=== PATIENT | male | born 1980 | race Two or more races ===

== ENCOUNTER 2024-01-29 21:12 | Emergency (ER) | payer OTHER ==
[~2024-01-29] VITALS: Ht 172.7 cm; Wt 65.8 kg
[2024-01-29] MEDS ORDERED: LORAZEPAM 2 MG/1 ML VIAL ONE (21:45)
[2024-01-29] MEDS: IV NORMAL SALINE 1000 ML BAG IV ONE (22:05)
[2024-01-29] MEDS: LORAZEPAM 2 MG/1 ML VIAL IV ONE (22:05)
[2024-01-29 22:21] LABS: *BILIRUBIN,URIN NEGATIVE (NEGATIVE); *CLARITY,URINE CLEAR (CLEAR); *COLOR,URINE YELLOW (YELLOW); *KETONES,URINE 1+ (NEGATIVE); *PROTEIN,URINE NEGATIVE (NEGATIVE); *UROBILINOGEN,URINE 0.2 E.U./dl (NORMAL); LEUKOCYTE ESTERASE ,URINE NEGATIVE (NEGATIVE); NITRITE, URINE NEGATIVE (NEGATIVE)
[2024-01-29 22:23] LABS: *BLOOD, URINE NEGATIVE (NEGATIVE); UGLUCOSE 2+ (NEGATIVE)
[2024-01-29 22:24] LABS: RBC,URINE 0-3 /HPF (0-3); WBC,URINE 0-3 /HPF (0-3)
[2024-01-29 22:28] LABS: BASOPHILS % (AUTO) 0.4 % (0.0-2.0); DIFFERENTIAL COMMENT 0; EOSINOPHILS % (AUTO) 0.1 % (0.0-7.0); ETHANOL 389 MG/DL (0-10); HEMATOCRIT 33.7 % (36.7-47.1); HEMOGLOBIN 11.4 g/dL (12.5-16.3); LYMPHOCYTES # (AUTO) 1.4 K/uL (0.8-4.8); LYMPHOCYTES % (AUTO) 19.1 % (20.5-51.5); MEAN CORPUSCULAR HEMOGLOBIN 30.2 uug (23.8-33.4); MEAN CORPUSCULAR HGB CONC 34 g/dL (32.5-36.3); MEAN CORPUSCULAR VOLUME 89.2 fL (73.0-96.2); MONOCYTES # (AUTO) 0.5 K/uL (0.1-1.30); MONOCYTES % (AUTO) 6.7 % (0.0-11.0); NEUTROPHILS # (AUTO) 5.3 K/uL (1.8-8.9); NEUTROPHILS % (AUTO) 73.7 % (38.5-71.5); PLATELET COUNT (AUTO) 203 K/uL (152-348); RED BLOOD CELL COUNT(AUTO) 3.78 MIL/uL (4.06-5.63); RED CELL DISTRIBUTION WIDTH 18.6 % (12.1-16.2); WHITE BLOOD COUNT (AUTO) 7.2 K/uL (3.6-10.2)
[2024-01-29 22:28] LABS: *AMPHETAMINE, URINE NEGATIVE (NEGATIVE); *BARBITURATE, URINE NEGATIVE (NEGATIVE); *BENZODIAZEPINE, URINE NEGATIVE (NEGATIVE); *CANNABINOID, URINE NEGATIVE (NEGATIVE); *COCCAINE, URINE NEGATIVE (NEGATIVE); *OPIATE, URINE NEGATIVE (NEGATIVE); *PHENCYCLIDINE SCREEN,URINE NEGATIVE (NEGATIVE)
[2024-01-29 22:29] LABS: CALCIUM 8.3 mg/dL (8.5-10.1); CARBON DIOXIDE 23 mmol/L (21-32); CHLORIDE 95 mmol/L (98-107); CREATININE 0.7 mg/dL (0.6-1.3); GLUCOSE 201 mg/dL (74-106); POTASSIUM 3.4 mmol/L (3.5-5.1); SODIUM SERUM 132 mmol/L (136-145); UREA NITROGEN, BLOOD 8 mg/dL (7-18)
[2024-01-29 22:42] LABS: THYROID STIMULATING HORMONE 0.752 mIU/mL (0.358-3.740)
[2024-01-29 22:44] LABS: ALANINE AMINOTRANSFERASE 21 U/L (16-63); ALBUMIN 2.6 g/dL (3.4-5.0); ALKALINE PHOSPHATASE 229 U/L (50-136); ASPARTATE AMINOTRANSFERASE 30 U/L (15-37); BILIRUBIN,DIRECT 0.2 mg/dL (0.0-0.2); BILIRUBIN,TOTAL 0.6 mg/dL (0.2-1.0); TOTAL PROTEIN, SERUM 7.1 g/dL (6.4-8.2)
[2024-01-29 22:45] LABS: ACETAMINOPHEN < 10.0 ug/mL (10-30)
[2024-01-29 22:50] LABS: FENTANYL, URINE NEGATIVE (NEGATIVE)
[2024-01-29 22:58] LABS: LACTIC ACID 3.1 mmol/L (0.4-2.0)
[2024-01-29 23:47] LABS: MAGNESIUM 1.8 mg/dL (1.8-2.4)
[2024-01-29 23:58] LABS: *OCCULT BLOOD STOOL POSITIVE (NEGATIVE)
[2024-01-30] MEDS: IV NORMAL SALINE 1000 ML BAG IV ONE (00:15)
[2024-01-30] MEDS ORDERED: PANTOPRAZOLE SODIUM 40 MG VIAL ONE (00:15)
[2024-01-30] MEDS ORDERED: METF-442 PO (00:27)
[2024-01-30] MEDS: PANTOPRAZOLE SODIUM IV 80 MG in IV DEXTROSE 5% 100 ML IV ONE (00:30)
[2024-01-30] MEDS ORDERED: REMEDY ESSENTIAL ZINC PASTE 113 GM TP PRN (00:45)
[2024-01-30] MEDS: THIAMINE HCL 200 MG/2 ML VIAL IV ONE (01:15)
[2024-01-30] MEDS ORDERED: THIAMINE HCL 200 MG/2 ML VIAL ONE (01:23)
[2024-01-30] MEDS ORDERED: LORAZEPAM 2 MG/1 ML VIAL ONE ×2 (01:24→07:49)
[2024-01-30] MEDS: LORAZEPAM 2 MG/1 ML VIAL IV ONE (01:30)
[2024-01-30] MEDS ORDERED: ONDANSETRON 4 MG/2 ML VIAL ONE ×2 (05:18→07:49)
[2024-01-30] MEDS: ONDANSETRON 4 MG/2 ML VIAL IV ONE (05:23)
[2024-01-30 05:52] LABS: BASOPHILS % (AUTO) 0.7 % (0.0-2.0); EOSINOPHILS % (AUTO) 0.3 % (0.0-7.0); HEMATOCRIT 32.1 % (36.7-47.1); HEMOGLOBIN 10.7 g/dL (12.5-16.3); LYMPHOCYTES # (AUTO) 1.4 K/uL (0.8-4.8); LYMPHOCYTES % (AUTO) 22.7 % (20.5-51.5); MEAN CORPUSCULAR HEMOGLOBIN 29.6 uug (23.8-33.4); MEAN CORPUSCULAR HGB CONC 33 g/dL (32.5-36.3); MEAN CORPUSCULAR VOLUME 88.8 fL (73.0-96.2); MONOCYTES # (AUTO) 0.6 K/uL (0.1-1.30); NEUTROPHILS # (AUTO) 4.1 K/uL (1.8-8.9); NEUTROPHILS % (AUTO) 67.3 % (38.5-71.5); PLATELET COUNT (AUTO) 216 K/uL (152-348); RED BLOOD CELL COUNT(AUTO) 3.62 MIL/uL (4.06-5.63); RED CELL DISTRIBUTION WIDTH 18.3 % (12.1-16.2); WHITE BLOOD COUNT (AUTO) 6.1 K/uL (3.6-10.2)
[2024-01-30 05:54] LABS: DIFFERENTIAL COMMENT 1
[2024-01-30 06:07] LABS: ALBUMIN 2.3 g/dL (3.4-5.0); BILIRUBIN,DIRECT 0.2 mg/dL (0.0-0.2); BILIRUBIN,TOTAL 0.8 mg/dL (0.2-1.0); CALCIUM 7.7 mg/dL (8.5-10.1); CREATININE 0.7 mg/dL (0.6-1.3); MAGNESIUM 1.6 mg/dL (1.8-2.4); PHOSPHOROUS 2.6 mg/dL (2.5-4.9); POTASSIUM 3.7 mmol/L (3.5-5.1); TOTAL PROTEIN, SERUM 6.5 g/dL (6.4-8.2)
[2024-01-30 06:17] LABS: THYROID STIMULATING HORMONE 1.015 mIU/mL (0.358-3.740)
[2024-01-30] MEDS: PANTOPRAZOLE SODIUM IV 80 MG in IV DEXTROSE 5% 500 ML IV SCH (07:16)
[2024-01-30] MEDS: ONDANSETRON 4 MG/2 ML VIAL IV PRN (07:49)
[2024-01-30] MEDS: LORAZEPAM 2 MG/1 ML VIAL IV PRN (07:51)
[2024-01-30] MEDS: IV NS 1000 ML 1,000 ML IV PRN (08:15)
[2024-01-30 09:45] VITALS: O2SAT 99
== END 2024-01-30 09:58 | disposition short-term general hospital (02) ==
LOC: ER 21:15
DX: R11.10 Vomiting, unspecified (principal); R00.0 Tachycardia, unspecified; F10.229 Alcohol dependence with intoxication, unspecified; D50.0 Iron deficiency anemia secondary to blood loss (chronic); Z20.822 Contact with and (suspected) exposure to COVID-19; Z79.84 Long term (current) use of oral hypoglycemic drugs; Z59.00 Homelessness unspecified; Y90.0 Blood alcohol level of less than 20 mg/100 ml
CPT/HCPCS: 80076 ×2; 80048 ×2; 81001; 82009; 82270; 83690; 83735 ×2; 84443 ×2; 85025 ×2; 84484; 36415 ×2; 93005; 71045; 99285; 96361 ×2; 96375 ×2; 83605 ×3; 80299; 80320; 80307; 84100; 86850; 86900; 86901; 87426; 96365; 96366; 96376; J2060 ×3; J7040 ×3; J2405 ×2; J2470 ×2; J3411; A4606; A4663; G0480